=== PATIENT | female | born 1965 | race American Indian/Alaskan Native ===

== ENCOUNTER 2019-02-07 09:24 | Outpatient (CLI) | payer MEDICARE ==
--- NOTE | 2019-02-07 10:18 | Mammography Report ---
Screening mammogram: Left breast cancer survivor with left mastectomy and TRAM procedure. Comparison is made to a prior examination on January 02, 2014. Routine views demonstrates fatty tissue in the left breast consistent with TRAM procedure and unchanged from prior exam. There is a heterogeneously dense fibroglandular pattern in the right breast which also remains unchanged and unremarkable any suspicious findings.. CAD used. Impression: Stable exam. Recommendation: Annual mammogram followup. BI-RADS CATEGORY: 2 = Benign ACR BI-RADS MAMMOGRAPHIC CODES: 0 = Needs additional imaging evaluation; 1 = Negative; 2 = Benign; 3 = Probably benign; 4 = Suspicious; 5 = Malignant; 6 = Known biopsy-proven malignancy COMMENT: 1. Dense breast tissue, i.e., adenosis, fibrocystic changes, etc., may obscure an underlying neoplasm. 2. Approximately 10% of cancers are not detected with mammography. 3. A negative mammography report should not delay biopsy if a clinically suspicious mass is present.
== END 2019-02-07 09:25 | disposition home or self-care (01) ==
LOC: MAMMO 09:24
DX: Z12.31 Encounter for screening mammogram for malignant neoplasm of breast (principal); Z90.710 Acquired absence of both cervix and uterus
CPT/HCPCS: 77067